=== PATIENT | female | born 1935 | race Caucasian/White ===

== ENCOUNTER → 2017-01-07 | Outpatient (CLI) | payer MEDICARE, BC ==
[~2017-01-07] MED LIST: ACTOS30 MG PO; AMOXICILLIN/CLA1 TA1 PO; BYETTA; CHOLESTYRAMINE1 PO1; DIOVAN160 MG PO; FLONASE NASAL S16 GM NS; FLONASE0.05 MG/AC NS; FOLIC ACID1 MG PO; GLUCOPHAGE XR500 M1 PO; HCTZ; HYDROCHLOR50 MG PO; LIPITOR40 MG PO; METFORMIN ER500 MG PO; NEURONTIN300 MG/CAP PO; NIFEDIPINE ER60 MG PO; PROCARDIA XL 6060 MG PO; ZETIA 10MG TAB10 MG PO; ZETIA10 MG PO
== END ==
LOC: COL.CARD 14:11
DX: R00.2 Palpitations (principal); I49.3 Ventricular premature depolarization

== ENCOUNTER → 2017-07-21 | Outpatient (CLI) | payer MEDICARE, BC | LOC: MC.RAD 08:20 | DX: Z12.31 Encounter for screening mammogram for malignant neoplasm of breast (principal) ==

== ENCOUNTER 2018-03-02 10:45 | Outpatient (RCR) | payer MEDICARE, BC | END 2018-03-05 07:18 | disposition home or self-care (01) | LOC: WSPT 10:45 | DX: M25.551 Pain in right hip (principal) | CPT/HCPCS: G8978-GP; G8979-GP; G8980-GP ==

== ENCOUNTER → 2018-09-17 | Outpatient (CLI) | payer MEDICARE, BC | LOC: MC.RAD 08-25 14:40 | DX: Z12.31 Encounter for screening mammogram for malignant neoplasm of breast (principal) ==

== ENCOUNTER → 2019-09-20 | Outpatient (CLI) | payer MEDICARE, BC | LOC: MC.RAD 15:34 | DX: Z12.31 Encounter for screening mammogram for malignant neoplasm of breast (principal); N64.89 Other specified disorders of breast ==

== ENCOUNTER → 2019-09-23 | Outpatient (CLI) | payer MEDICARE, BC | LOC: MC.RAD 09:25 | DX: N63.20 Unspecified lump in the left breast, unspecified quadrant (principal); N64.89 Other specified disorders of breast | CPT/HCPCS: G0279 ==

== ENCOUNTER → 2019-09-27 | Outpatient (CLI) | payer MEDICARE, BC ==
[~2019-09-27] MED LIST changes: +B-121000 MCG PO; +CALTRATE-600 W600 MG PO; +COZAAR100 MG PO; +DITROPAN 5MG TAB5 MG PO; +FOLIC ACID 11 MG/TA1 PO; +IMODIUM A-D2 MG PO; +LEVEMIR FLEX100 U/ML SQ; +NOVOLOG 100U100 U/M1 SQ; +PRIL40 PO; +TOPROL XL 25MG25 MG PO; +TRICOR145 MG PO; +TYLENOL 500MG500 MG PO; +ULTRAM 50MG TAB50 MG PO
== END ==
LOC: MC.RAD 07:37
DX: Z12.31 Encounter for screening mammogram for malignant neoplasm of breast (principal); N63.21 Unspecified lump in the left breast, upper outer quadrant

== ENCOUNTER 2019-10-14 06:19 | Day surgery (SDC) | payer MEDICARE, BC ==
[~2019-10-14] VITALS: Ht 152.4 cm; Wt 70.9 kg
[~2019-10-14 06:19] MED LIST changes: -B-121000 MCG PO; -CALTRATE-600 W600 MG PO; -COZAAR100 MG PO; -DITROPAN 5MG TAB5 MG PO; -FOLIC ACID 11 MG/TA1 PO; -IMODIUM A-D2 MG PO; -LEVEMIR FLEX100 U/ML SQ; -NOVOLOG 100U100 U/M1 SQ; -PRIL40 PO; -TOPROL XL 25MG25 MG PO; -TRICOR145 MG PO; -TYLENOL 500MG500 MG PO; -ULTRAM 50MG TAB50 MG PO
--- NOTE | 2019-10-14 08:22 | NUR ---
DR DHILLON INTO TALK WITH PATIENT AND DISCUSS LAB RESULTS.
--- NOTE | 2019-10-14 08:25 | NUR ---
SURGERY CANCELLED OFFICE WILL CALL PATIENT
--- NOTE | 2019-10-14 08:33 | NUR ---
DISCHARGED PER OWN WILL STEADY GAIT. DISCHARGED WITH FRIENDS KISHORE AND DIONNA.
[2019-10-14 08:40] VITALS: BP 157/54; PULSE 84; TEMP 97.8
[2019-10-14] MEDS ORDERED: NOVOLOG 100U100 U/M1 SQ (09:01)
[2019-10-14] MEDS ORDERED: LEVEMIR FLEX100 U/ML SQ (09:01)
[2019-10-14] MEDS ORDERED: TOPROL XL 25MG25 MG PO (09:04)
[2019-10-14] MEDS ORDERED: COZAAR100 MG PO (09:05)
[2019-10-14] MEDS ORDERED: FOLIC ACID 11 MG/TA1 PO (09:05)
[2019-10-14] MEDS ORDERED: B-121000 MCG PO (09:06)
[2019-10-14] MEDS ORDERED: CALTRATE-600 W600 MG PO (09:08)
[2019-10-14] MEDS ORDERED: ZETIA 10MG TAB10 MG PO (09:08)
[2019-10-14] MEDS ORDERED: DITROPAN 5MG TAB5 MG PO (09:09)
[2019-10-14] MEDS ORDERED: TRICOR145 MG PO (09:09)
[2019-10-14] MEDS ORDERED: FLONASE NASAL S16 GM NS (09:11)
[2019-10-14] MEDS ORDERED: IMODIUM A-D2 MG PO (09:13)
[2019-10-14] MEDS ORDERED: PRIL40 PO (09:14)
[2019-10-14] MEDS ORDERED: TYLENOL 500MG500 MG PO (09:14)
--- NOTE | 2019-10-14 09:16 | NUR ---
TO RM AT 0815- CALL LIGHT IN REACH WILL BE COMING AT A LATER TIME.
--- NOTE | 2019-10-14 11:23 | NUR ---
RETURNED FROM RADIOLOGY. AMBULATED TO BATHROOM WITH CANE. BACK IN BED AND IV FLUIDS RESTARTED
--- NOTE | 2019-10-14 11:37 | NUR ---
Initial visit; Patient requested prayer prior to procedure. Computer Systems Security Administrator offered both encouragement and prayer. Patient and her thanked Computer Systems Security Administrator for spiritual care.
[2019-10-14] MEDS ORDERED: ULTRAM 50MG TAB50 MG PO (14:29)
[2019-10-14 15:00] VITALS: BP 115/43; PULSE 78; TEMP 98.2
--- NOTE | 2019-10-14 15:00 | NUR ---
The patient arrived back to [facility] from the recovery room at this time. The patient appears alert and oriented and reports minimal pain at this time. Post operative vital signs were started at this time. The patient's was brought back to be at her bedside. The patient has some ice chips and appears to be tolerating them well. Call light is within reach. Will continue to monitor the patient.
[2019-10-14 15:15] VITALS: BP 110/58; PULSE 77
--- NOTE | 2019-10-14 15:15 | NUR ---
The patient agrees to try some wheat toast, chocolate pudding and coffee at this time. The patient's vital signs appear stable. remains at her bedside. Will continue to monitor the patient.
[2019-10-14 15:30] VITALS: BP 123/51; PULSE 81
--- NOTE | 2019-10-14 15:30 | NUR ---
The patient has finished most of her food and drink and appears to have tolerated it well. Vital signs obtained. The patient was weaned off her oxygen at this time. Call light is within reach. Will continue to monitor the patient.
[2019-10-14 15:45] VITALS: BP 115/57; PULSE 83
--- NOTE | 2019-10-14 15:45 | NUR ---
The patient ambulated to the bathroom with the stand by assistance of one nurse and her cane. She appeared to tolerate the activity well and voided without difficulty. The patient's IV to her right hand was removed and a pressure dressing was applied to the site. The nurse instructed the patient to get dressed and notify the staff when she is ready to be escorted out.
[2019-10-14 15:50] VITALS: BP 99/45; PULSE 79; TEMP 97.5
--- NOTE | 2019-10-14 16:00 | NUR ---
Discharge instructions were reviewed with the patient and her at this time. They both verbalized understanding and have no questions for the nurse at this time. The patient's IV to her right hand was removed and a pressure dressing was applied to the site.
--- NOTE | 2019-10-14 16:15 | NUR ---
The patient was escorted out via wheelchair to a private vehicle by HONG Shirley. The patient's belongings and discharge paperwork were sent with her. The patient's is present to drive her home.
== END 2019-10-14 16:15 | disposition home or self-care (01) ==
LOC: SDCO 06:19
DX: C50.412 Malignant neoplasm of upper-outer quadrant of left female breast (principal); Z17.0 Estrogen receptor positive status [ER+]; I10 Essential (primary) hypertension; E11.9 Type 2 diabetes mellitus without complications; Z79.4 Long term (current) use of insulin; Z79.899 Other long term (current) drug therapy; E78.00 Pure hypercholesterolemia, unspecified; K21.9 Gastro-esophageal reflux disease without esophagitis; Z88.8 Allergy status to other drugs, medicaments and biological substances
CPT/HCPCS: A9541; J1885; J2250; J2405; J2704; J2795; J3010; J7030

== ENCOUNTER → 2021-09-19 | Outpatient (CLI) | payer MEDICARE, BC ==
[~2021-09-19] MED LIST changes: +B-121000 MCG PO; +CALTRATE-600 W600 MG PO; +COZAAR100 MG PO; +DITROPAN 5MG TAB5 MG PO; +FOLIC ACID 11 MG/TA1 PO; +IMODIUM A-D2 MG PO; +LEVEMIR FLEX100 U/ML SQ; +NOVOLOG 100U100 U/M1 SQ; +PRIL40 PO; +TOPROL XL 25MG25 MG PO; +TRICOR145 MG PO; +TYLENOL 500MG500 MG PO; +ULTRAM 50MG TAB50 MG PO
== END ==
LOC: MC.RAD 08:59
DX: Z12.31 Encounter for screening mammogram for malignant neoplasm of breast (principal); Z98.890 Other specified postprocedural states; Z92.3 Personal history of irradiation; Z85.3 Personal history of malignant neoplasm of breast

== ENCOUNTER 2022-12-29 23:08 | Inpatient (IN) | payer MEDICARE, BC ==
[~2022-12-29] VITALS: Wt 70.5 kg
[~2022-12-29 23:08] MED LIST changes: +MILK OF MA400 MG/52 PO; +MIRALAX238G PO; +STOOL SOFTENER100 M2 PO
[2022-12-29 23:40] LABS: BASO % 0.2 % (0.0-2.0); EOS # 0.1 K/mm3 (0.0-0.7); EOS % 0.7 % (0.0-4.0); GRAN # 10.1 K/mm3 (1.4-6.5); GRAN % 71.7 % (42.2-75.2); HEMATOCRIT 42.2 % (37.0-47.0); HEMOGLOBIN 14.1 g/dl (12.5-16.0); LYMPH # 3.1 K/mm3 (1.2-3.4); LYMPH % 22.1 % (20.0-51.0); MEAN CELL VOLUME 93 fl (80.0-100.0); MEAN CORPUSCULAR HEMOGLOBIN 31 pg (27-31); MEAN CORPUSCULAR HGB CONC 33 g/dl (33.0-37.0); MEAN PLATELET VOLUME 9.8 fl (7.4-10.4); MONO # 0.7 K/mm3 (0.1-0.6); MONO % 4.9 % (1.7-9.3); PLATELET COUNT 290 K/mm3 (130-400); RED BLOOD COUNT 4.54 M/mm3 (4.10-5.30); REDCELL DISTRIBUTION WIDTH-CV 13.2 % (11.5-14.5)
[2022-12-30 00:04] LABS: ALBUMIN 3.6 gm/dL (3.4-4.8); BILIRUBIN,TOTAL 0.3 mg/dL (0.2-1.2); C-REACTIVE PROTEIN 1.01 mg/dL (0.00-0.50); CALCIUM 9.5 mg/dL (8.4-10.2); CREATININE, serum 0.99 mg/dL (0.57-1.11); POTASSIUM 3.8 mmol/L (3.5-4.5); TOTAL PROTEIN 8.1 gm/dL (6.2-8.1)
[2022-12-30 09:21] VITALS: BP 158/66; PULSE 111; TEMP 97.9
[2022-12-30 12:58] VITALS: BP 189/70; PULSE 111; TEMP 97.9
--- NOTE | 2022-12-30 16:45 | NUR ---
PT WAS ADMITTED FROM ED FOR POSSIBLE PANCREATITIS. PT IS A&OX3; AT BEDSIDE. ULTRASOUND DONE TO CHECK FOR GALLSTONES-WAITING FOR RESULTS
[2022-12-30 16:55] VITALS: BP 183/62; PULSE 100; TEMP 98.1
--- NOTE | 2022-12-30 17:25 | NUR ---
PT BP ELEVATED X2- DR. QUEVEDO CALLED AND CHANGES MADE TO METOPROLOL W. ONE TIME DOSE NOW
[2022-12-30 20:03] VITALS: BP 166/61; PULSE 98; TEMP 98.1
[2022-12-30 23:16] VITALS: BP 151/53; PULSE 96; TEMP 100.6
[2022-12-31 05:00] VITALS: BP 153/54; PULSE 89; TEMP 98.1
--- NOTE | 2022-12-31 06:29 | NUR ---
pt placed on 2L O2 per NC after midnight VS d/t low sat on RA, new orders rec'd for po hydralazine for sbp > 150, will give dose now, sbp 153. requested morphine x1 this shift for abd pain. IVF infusing @ 75cc/hr per piv.
[2022-12-31 06:40] LABS: BASO # 0.1 K/mm3 (0.0-0.2); BASO % 0.3 % (0.0-2.0); EOS # 0.1 K/mm3 (0.0-0.7); EOS % 0.3 % (0.0-4.0); GRAN % 75.4 % (42.2-75.2); LYMPH # 3.3 K/mm3 (1.2-3.4); LYMPH % 16.6 % (20.0-51.0); MEAN CELL VOLUME 92 fl (80.0-100.0); MEAN CORPUSCULAR HGB CONC 34 g/dl (33.0-37.0); MEAN PLATELET VOLUME 10.3 fl (7.4-10.4); MONO # 1.4 K/mm3 (0.1-0.6); MONO % 6.8 % (1.7-9.3); PLATELET COUNT 243 K/mm3 (130-400); REDCELL DISTRIBUTION WIDTH-CV 13.7 % (11.5-14.5)
[2022-12-31 06:42] LABS: HEMATOCRIT 35.9 % (37.0-47.0); HEMOGLOBIN 12.1 g/dl (12.5-16.0); MEAN CORPUSCULAR HEMOGLOBIN 31 pg (27-31)
[2022-12-31 07:00] LABS: CALCIUM 8.6 mg/dL (8.4-10.2); CREATININE, serum 0.79 mg/dL (0.57-1.11); POTASSIUM 3.2 mmol/L (3.5-4.5)
[2022-12-31 07:10] VITALS: BP 166/58; PULSE 96; TEMP 98.2
[2022-12-31 08:44] LABS: ALBUMIN 2.7 gm/dL (3.4-4.8); BILIRUBIN,TOTAL 0.6 mg/dL (0.2-1.2); CALCIUM 8.6 mg/dL (8.4-10.2); CREATININE, serum 0.81 mg/dL (0.57-1.11); POTASSIUM 3.3 mmol/L (3.5-4.5); TOTAL PROTEIN 6.7 gm/dL (6.2-8.1)
[2022-12-31 10:58] VITALS: BP 177/55; PULSE 89; TEMP 97.4
[2022-12-31 15:12] VITALS: BP 181/57; PULSE 94; TEMP 97.4
--- NOTE | 2022-12-31 15:44 | NUR ---
Merchandise Execution Leader met with Patient and at bedside to conduct Care Managment Assessment and discuss discharge planning. Patient lives in [place], [place] with her , Pat P:[phone] and is established with PCP Dr. Ferraro. Patient is covered by [facility] as well as [facility] for insurance. Yolanda recieves Rx from [facility] and endorses the use of a walker at home. Patient denies the use of O2 and Home health services prior to admission. Patient reports to have AD with her daughter as her agent. Patient intends to discharge home pending changes in discharge needs. Discharge Plan: Home.
[2022-12-31 19:22] VITALS: BP 160/56; PULSE 93; TEMP 98.7
[2022-12-31 20:26] LABS: COLLECTION METHOD CLEAN CATCH
[2022-12-31 20:31] LABS: URINE APPEARANCE Clear (CLEAR/HAZY); URINE COLOR Yellow (YELLOW)
[2022-12-31 20:33] LABS: PH 6.5 (5.0-8.5); URINE BLOOD Negative (NEGATIVE); URINE GLUCOSE 1+ (NEGATIVE); URINE KETONE Negative (NEGATIVE); URINE NITRATE Negative (NEGATIVE); URINE PROTEIN(semi-quant) 2+ (NEGATIVE); URINE UROBILINOGEN 0.2 E.U/dL (0.2-1.0)
[2022-12-31 20:34] LABS: SQUAMOUS EPITHELIAL None Seen /hpf (0-10); URINE BACTERIA None Seen /hpf (NONE SEEN)
[2023-01-01 00:15] VITALS: BP 144/58; PULSE 87; TEMP 97.9
[2023-01-01 04:57] VITALS: BP 151/60; PULSE 94; TEMP 97.9
--- NOTE | 2023-01-01 05:58 | NUR ---
continues to require 2L O2 per NC, ivf infusing per piv @ 75cc/hr, morphine given x1 for reported pain of 9 on 0-10 scale, able to sleep afterwards, up to bsc with assist of 2. HS BGM 158, pt did not eat lunch or dinner yesterday d/t stomach discomfort, wanted to only take 25 units of HS levemir insulin. CT abd ordered for this am.
[2023-01-01 07:17] LABS: BASO # 0.1 K/mm3 (0.0-0.2); BASO % 0.3 % (0.0-2.0); EOS # 0.1 K/mm3 (0.0-0.7); EOS % 0.7 % (0.0-4.0); GRAN # 15.3 K/mm3 (1.4-6.5); GRAN % 78.6 % (42.2-75.2); HEMOGLOBIN 12.2 g/dl (12.5-16.0); LYMPH # 2.6 K/mm3 (1.2-3.4); LYMPH % 13.2 % (20.0-51.0); MEAN CELL VOLUME 92 fl (80.0-100.0); MEAN CORPUSCULAR HEMOGLOBIN 31 pg (27-31); MEAN CORPUSCULAR HGB CONC 34 g/dl (33.0-37.0); MEAN PLATELET VOLUME 10.2 fl (7.4-10.4); MONO # 1.2 K/mm3 (0.1-0.6); MONO % 6.2 % (1.7-9.3); PLATELET COUNT 249 K/mm3 (130-400); RED BLOOD COUNT 3.94 M/mm3 (4.10-5.30); REDCELL DISTRIBUTION WIDTH-CV 13.3 % (11.5-14.5)
[2023-01-01 07:18] LABS: HEMATOCRIT 36.1 % (37.0-47.0)
[2023-01-01 07:37] LABS: CALCIUM 8.6 mg/dL (8.4-10.2); CREATININE, serum 0.75 mg/dL (0.57-1.11); POTASSIUM 3.2 mmol/L (3.5-4.5)
[2023-01-01 08:02] VITALS: BP 152/58; PULSE 96; TEMP 97.4
[2023-01-01 11:30] VITALS: BP 158/62; PULSE 89; TEMP 97.6
--- NOTE | 2023-01-01 13:20 | NUR ---
PT HAD REPEAT CT THIS MORNING- WAITING FOR RESULTS; NO OTHER CHANGES TODAY
[2023-01-01 15:58] VITALS: BP 159/53; PULSE 84; TEMP 97.6
[2023-01-01 19:36] VITALS: BP 133/41; PULSE 83; TEMP 98
--- NOTE | 2023-01-01 20:00 | NUR ---
PATIENT IS RESTING IN BED.PATIENT DENIES PAIN AND SOB.PATIENT IS A ONE ASSIST TO THE BEDSIDE COMMODE.PATIENT TAKES PILLS WHOLE WITH NO TROUBLE.SAFETY MEASURES IN PLACE.NO OTHER NEEDS AT THIS TIME.
[2023-01-02 00:01] VITALS: BP 167/54; PULSE 86; TEMP 97.6
[2023-01-02 03:36] VITALS: BP 152/60; PULSE 79; TEMP 98.2
--- NOTE | 2023-01-02 06:21 | NUR ---
PATIENT HAD A CALM NIGHT.SAFETY MEASURES IN PLACE.NO OTHER NEEDS AT THIS TIME.
[2023-01-02 06:42] LABS: BASO % 0.3 % (0.0-2.0); EOS # 0.3 K/mm3 (0.0-0.7); EOS % 1.8 % (0.0-4.0); GRAN # 11.6 K/mm3 (1.4-6.5); GRAN % 78.3 % (42.2-75.2); HEMOGLOBIN 11.4 g/dl (12.5-16.0); LYMPH % 13.2 % (20.0-51.0); MEAN CELL VOLUME 92 fl (80.0-100.0); MEAN CORPUSCULAR HEMOGLOBIN 31 pg (27-31); MEAN CORPUSCULAR HGB CONC 33 g/dl (33.0-37.0); MEAN PLATELET VOLUME 10.6 fl (7.4-10.4); MONO # 0.9 K/mm3 (0.1-0.6); MONO % 5.9 % (1.7-9.3); PLATELET COUNT 243 K/mm3 (130-400); RED BLOOD COUNT 3.74 M/mm3 (4.10-5.30); REDCELL DISTRIBUTION WIDTH-CV 13.2 % (11.5-14.5)
[2023-01-02 06:45] LABS: HEMATOCRIT 34.3 % (37.0-47.0)
[2023-01-02 06:58] LABS: CALCIUM 8.7 mg/dL (8.4-10.2); CREATININE, serum 0.7 mg/dL (0.57-1.11)
--- NOTE | 2023-01-02 07:00 | NUR ---
PATIENT ASLEEP, RESTING IN BED. PATIENTS BED ALARM ON. IVF INFUSING. CALL LIGHT WTIHIN REACH.
[2023-01-02 07:02] VITALS: BP 154/50; PULSE 88; TEMP 98.2
[2023-01-02 07:16] LABS: POTASSIUM 2.7 mmol/L (3.5-4.5)
[2023-01-02 08:06] LABS: MAGNESIUM 1.8 mg/dL (1.6-2.6); PHOSPHOROUS 1.7 mg/dL (2.3-4.7)
[2023-01-02 11:24] VITALS: BP 130/46; PULSE 83; TEMP 98.2
[2023-01-02] MEDS ORDERED: ARIMIDEX1 MG PO (11:49)
--- NOTE | 2023-01-02 13:55 | NUR ---
PATIENT GIVEN DISCHARGE INSTRUCTIONS AND EDUCATION. PATIENT AWARE SHE NEEDS TO CALL DR PETTY OFFICE FOR FOLLOW UP APT, SHOWN ON DISCHARGE PAPER WORK. PATIENT VERBALIZED UNDERSTANDING OF THE ALL THE ABOVE. PATIENTS IV REMOVED.
--- NOTE | 2023-01-02 14:05 | NUR ---
PATIENT DRESSED BY A PCT AND THIS RN, PATIENT TAKEN VIA WHEELCHAIR BY PCT TO PATIENT ENTRANCE WHERE HER PICKED HER UP. PATIETN DISCHARGE IN STABLE CONDITION.
== END 2023-01-02 14:05 | disposition home or self-care (01) | DRG 439 ==
LOC: COL.ER 23:08 → MEDICAL 12-30 02:24
PROVIDERS: Emergency Medicine; Internal Medicine; Physician Assistant; Surgery; ADMIT Internal Medicine
DX: K85.80 Other acute pancreatitis without necrosis or infection (principal); K83.09 Other cholangitis; K86.2 Cyst of pancreas; E11.9 Type 2 diabetes mellitus without complications; Z96.611 Presence of right artificial shoulder joint; E87.6 Hypokalemia; E83.39 Other disorders of phosphorus metabolism; I10 Essential (primary) hypertension; K62.3 Rectal prolapse; K59.09 Other constipation; Z90.49 Acquired absence of other specified parts of digestive tract; Z90.710 Acquired absence of both cervix and uterus; Z90.89 Acquired absence of other organs; Z88.6 Allergy status to analgesic agent; Z88.8 Allergy status to other drugs, medicaments and biological substances; Z91.048 Other nonmedicinal substance allergy status; Z79.4 Long term (current) use of insulin; Z23 Encounter for immunization
CPT/HCPCS: J0360; J1815; J2270; J2405; J2543; J2550; J7030; Q9967

== ENCOUNTER → 2023-01-19 | Outpatient (CLI) | payer MEDICARE, BC ==
[~2023-01-19] MED LIST changes: +ARIMIDEX1 MG PO
== END ==
LOC: COL.RAD 08:22
DX: K86.2 Cyst of pancreas (principal); K86.3 Pseudocyst of pancreas
CPT/HCPCS: A9575

== ENCOUNTER 2024-01-12 16:09 | Inpatient (IN) | payer MEDICARE, BC ==
[~2024-01-12] VITALS: Ht 154.9 cm; Wt 78.1 kg
[2024-01-12 18:35] LABS: ALBUMIN 2.5 g/dL (3.4-4.8); BILIRUBIN,TOTAL 0.4 mg/dL (0.2-1.2); CALCIUM 9.7 mg/dL (8.4-10.2); CREATININE, serum 1.15 mg/dL (0.57-1.11); POTASSIUM 4.5 mEq/L (3.5-4.5); TOTAL PROTEIN 7.6 g/dl (6.2-8.1)
[2024-01-12 18:41] LABS: TROPONIN-I 0.03 ng/mL (0.00-0.033)
[2024-01-12] MEDS ORDERED: cefTRIAXone 1 G in Water For Injection,Sterile 10 ML IV ONE (18:45)
[2024-01-12] MEDS ORDERED: Azithromycin 500 MG in NS 250 ML IV ONE (18:45)
[2024-01-12 19:05] LABS: BASO # 0.1 K/mm3 (0.0-0.2); BASO % 0.7 % (0.0-2.0); EOS % 0.3 % (0.0-4.0); GRAN # 9.2 K/mm3 (1.4-6.5); HEMATOCRIT 37.7 % (37.0-47.0); HEMOGLOBIN 12.3 g/dl (12.5-16.0); LYMPH # 1.4 K/mm3 (1.2-3.4); LYMPH % 12.1 % (20.0-51.0); MEAN CELL VOLUME 93 fl (80.0-100.0); MEAN CORPUSCULAR HEMOGLOBIN 30 pg (27-31); MEAN CORPUSCULAR HGB CONC 33 g/dl (33.0-37.0); MEAN PLATELET VOLUME 10.2 fl (7.4-10.4); MONO # 1.1 K/mm3 (0.1-0.6); MONO % 9.1 % (1.7-9.3); PLATELET COUNT 280 K/mm3 (130-400); RED BLOOD COUNT 4.06 M/mm3 (4.10-5.30); REDCELL DISTRIBUTION WIDTH-CV 13.6 % (11.5-14.5)
[2024-01-12] MEDS ORDERED: Glucagon 1 MG VIAL IM PRN (21:00)
[2024-01-12] MEDS ORDERED: Dextrose (Glucose) 15 GM (4 x 3.75 GM) Chewable TABLET PACK PO PRN (21:00)
[2024-01-12] MEDS ORDERED: Dextrose 50% Water 25 GM/50 ML SYRINGE IV PRN (21:00)
[2024-01-12] MEDS ORDERED: NS 1,000 ML IV SCH (21:15)
--- NOTE | 2024-01-12 21:37 | NUR ---
PRIMARY NURSE CALLED ER TO GET REPORT. CLAUDIO IN GIVING MEDICATIONS AND STATED SHE WOULD CALL BACK.
--- NOTE | 2024-01-12 21:47 | NUR ---
CLAUDIO CALLED PRIMARY NURSE BACK AND RECIEVED REPORT ON PATIENT.
--- NOTE | 2024-01-12 22:01 | NUR ---
CLAUDIO CALLED PRIMARY NURSE AND INFORMED HER THAT PATIENT WAS ON THEIR WAY UP TO ROOM.
--- NOTE | 2024-01-12 22:13 | NUR ---
PATIENT BLOOD SUGAR 57. D50 12.5 GRAMS GIVEN PER HYPOGLYCEMIC PROTOCOL. PATIENT ALERT AND ORIENTED WITH NO ACUTE DISTRSS NOTED.
[2024-01-12] MEDS ORDERED: *Potassium Replacement Protocol MC SCH (22:15)
--- NOTE | 2024-01-12 22:15 | NUR ---
FEMALE PATIENT ARRIVED TO ROOM #310 VIA STRETCHER FROM ER. PATIENT TRANSFERED TO BED. PATIENT TOLERATED WEEL. PATIENT ALERT AND ORIENTED X4. TELEMETRY INTACT. SKIN WARM, DRY, AND INTACT. YEAST NOTED TO GROIN FOLDS WITH SLIGHT REDNESS. INT TO RIGHT WRIST WITH BLOOD PRESENT. UNABLE TO FLUSH. NEW IV SITE OBTAINED. PATIENT VERBALIZED UNDERSTANDING OF CALL LIGHT AND BED CONTROLS. PATIENT GIVEN PITCHER OF WATER WITH ICE. PATIENT DENIES ANY OTHER NEEDS. BED IN LOW POSITION WITH WHEELS LOCKED WITH RAILS UP X3 AND CALL LIGHT WITHIN REACH. BED ALARM ON.
--- NOTE | 2024-01-12 22:45 | NUR ---
PATIENT RESTING IN BED WITH TV OFF WITH NO FAMILY PRESENT WITH NO ACUTE DISTRESS NOTED. PATIENT ON 2 LITERS OF OXYGEN VIA NC. TELEMETRY INTACT. MEDICATION ADMINISTRATION COMPLETED AT THIS TIME. PATIENT TOLERATED WELL. ALL NEEDS MET. BED IN LOW POSITION WITH WHEELS LOCKED WITH RAILS UP X3 AND CALL LIGHT WITHIN REACH. BED ALARM ON.
[2024-01-12] MEDS ORDERED: Albuterol/Ipratropium 3 MG-0.5 MG/3 ML Neb Soln IH SCH (23:00)
[2024-01-12 23:44] VITALS: BP 134/70; PULSE 82; TEMP 98.1
[2024-01-13] VITALS (13 sets, daily range): BP systolic 109–168; BP diastolic 46–76; PULSE 76–102; TEMP 97.5–98.2
[2024-01-13] MEDS ORDERED: STOOL SOFTENER100 M2 PO (00:34)
[2024-01-13] MEDS ORDERED: NOVOLOG 100U100 U/M1 SQ (00:47)
[2024-01-13] MEDS ORDERED: CEPHALEXIN500 M1 PO (00:53)
--- NOTE | 2024-01-13 00:59 | NUR ---
PATIENT BLOOD SUGAR RECHECKED BY PRIMARY NURSE WITH A RESULT OF 66. D50 12.5 MG IV GIVEN PER HYPOGLYCEMIC PROTOCOL. PATIENT CONTINUES TO BE ALERT AND ORIENTED WITH NO ACUTE DISTRESS NOTED.
[2024-01-13 06:24] LABS: BASO # 0.1 K/mm3 (0.0-0.2); BASO % 0.5 % (0.0-2.0); EOS % 0.3 % (0.0-4.0); GRAN % 72.1 % (42.2-75.2); LYMPH # 1.6 K/mm3 (1.2-3.4); MEAN CELL VOLUME 92 fl (80.0-100.0); MEAN CORPUSCULAR HGB CONC 33 g/dl (33.0-37.0); MEAN PLATELET VOLUME 10.3 fl (7.4-10.4); MONO % 10.4 % (1.7-9.3); PLATELET COUNT 248 K/mm3 (130-400); RED BLOOD COUNT 3.33 M/mm3 (4.10-5.30); REDCELL DISTRIBUTION WIDTH-CV 13.7 % (11.5-14.5)
[2024-01-13 06:25] LABS: HEMATOCRIT 30.7 % (37.0-47.0); MEAN CORPUSCULAR HEMOGLOBIN 30 pg (27-31)
[2024-01-13 06:37] LABS: CALCIUM 8.6 mg/dL (8.4-10.2); CREATININE, serum 0.97 mg/dL (0.57-1.11); MAGNESIUM 2.1 mg/dL (1.6-2.6); PHOSPHOROUS 2.5 mg/dL (2.3-4.7)
[2024-01-13] MEDS ORDERED: Doxycycline Hyclate 100 MG in NS 150 ML IV SCH (08:00)
--- NOTE | 2024-01-13 08:30 | NUR ---
patient assessment completed. patient requested to have all four rails up. Patient was informed that four rails up is consider a restrain and patient would have limited access getting out of bed and it is also against patient care treatment. Patient agreed to having one side rail up. call light within reach. bed at lowest position.
[2024-01-13] MEDS ORDERED: Benzonatate 100 MG CAP PO PRN (08:45)
[2024-01-13] MEDS ORDERED: Acetaminophen 500 MG TAB PO PRN (08:45)
--- NOTE | 2024-01-13 10:25 | NUR ---
Initial visit; Patient thanked Link Cutter for looking in on her and offering to keep her in her prayers. Patient's was also present and very nice and offering support.
--- NOTE | 2024-01-13 10:43 | NUR ---
church worker met with patient and , Sunny, P# [phone], to discuss discharge planning. PCP is Dr. Ferraro, pharmacy is [facility]. No issues with affording medication. Insurance is Medicare A and B, BCBS and has A[employer] for pharmacy needs. DPOA-HC is Lina and Julienne (daughter) Home P# [phone] and cell P# is [phone]. Pat reports daughter lives with them in their home. The home has stairs but they have a stair lift for patient to be able to go up and down on her own. DME is walker, cane and patient reports she just obtained a wheelchair yesterday. Patient reports normally she is able to be indpendent with ADLS, only assistance at this time is her turning the water on in the shower for her. Patient is currently on oxygen but does not have this at baseline. Patient's is able to transport to and from appointments. Patient would like to return home at time of discharge but is open to recommendations after PT/OT evaluate her. SW will continue to monitor. Discharge plan: Home
[2024-01-13] MEDS ORDERED: Insulin Lispro (HumaLOG) SQ SCH ×2 (12:00)
--- NOTE | 2024-01-13 13:15 | NUR ---
pt c/o SOA with talking, improves at rest. o2 level was 93% at 1 L per NC after weaning from 6 L. Encouraged pt to take deep breaths. pt is coughing and clearing airway with pale yellow sputum. no acute distress. is at bedside, bed lowest positon with 4 rails up. call light within reach.
[2024-01-13] MEDS ORDERED: Albuterol/Ipratropium 3 MG-0.5 MG/3 ML Neb Soln IH SCH (14:00)
--- NOTE | 2024-01-13 14:15 | NUR ---
patient was taken off oxygen per respiratory, shortly after patient started to experience difficulty breathing therefore patient oxygen was placed back on at 1L/NC and patient began to breath easier. call light within reach. bed at lowest position. bed alarm on.
--- NOTE | 2024-01-13 15:58 | NUR ---
tanyard worker met with pt and provided Medicare.gov list of HH vs SNF facilities. Pt had many questions regarding each and SW answered these. She was familiar with many different agencies. She reports wanting to talk to her tomorrow before making a decision. Pt stated if she were to go home, her could be there 27/04. Discharge Plan: SNF vs HH
[2024-01-13] MEDS ORDERED: cefTRIAXone 1 G in Water For Injection,Sterile 10 ML IV SCH (19:00)
--- NOTE | 2024-01-13 20:30 | NUR ---
UPON SHIFT ASSESSMENT, SHANELLE WAS AWAKE IN BED AND AXO X4. WAS BEDSIDE. INCREASE WOB WAS EVIDENT AND LUNG SOUNDS AUSCULTATED RUB WITH EXP WHEEZING IN LT LOWER LOBES, EXP WHEEZING IN BOTH UPPER LOBES. VS ARE WNL LIMITS, O2 ON 0.5L NC 93%. PATEINT C/O JOINER 04/13-ADMINISTERED PRN TYLENOL. PATIENT STATED NO OTHER NEEDS AT THIS TIME. CALL LIGHT WITHIN REACH.
[2024-01-14] VITALS (13 sets, daily range): BP systolic 103–179; BP diastolic 58–78; PULSE 83–94; TEMP 97.5–99
--- NOTE | 2024-01-14 01:11 | NUR ---
ROUNDED ON PATIENT, O2 NC DISLODGED FROM NARES. O2 PULSE OX 92%-WNL.
--- NOTE | 2024-01-14 04:30 | NUR ---
CALL PLACED TO RT, PATIENT CONTINUES TO HAVE EXP WHEEZING BILATERALLY. RT STATES THAT PATIENT JUST GOT SVN TREATMENT, BUT SHE WILL COME AND REASSESS.
[2024-01-14 07:50] LABS: BASO # 0.1 K/mm3 (0.0-0.2); BASO % 0.4 % (0.0-2.0); EOS # 0.2 K/mm3 (0.0-0.7); EOS % 1.4 % (0.0-4.0); GRAN # 7.9 K/mm3 (1.4-6.5); GRAN % 66.1 % (42.2-75.2); HEMOGLOBIN 11.1 g/dl (12.5-16.0); LYMPH # 2.7 K/mm3 (1.2-3.4); LYMPH % 22.5 % (20.0-51.0); MEAN CELL VOLUME 94 fl (80.0-100.0); MEAN CORPUSCULAR HEMOGLOBIN 30 pg (27-31); MEAN CORPUSCULAR HGB CONC 32 g/dl (33.0-37.0); MEAN PLATELET VOLUME 10.1 fl (7.4-10.4); MONO % 8.2 % (1.7-9.3); PLATELET COUNT 316 K/mm3 (130-400); RED BLOOD COUNT 3.68 M/mm3 (4.10-5.30); REDCELL DISTRIBUTION WIDTH-CV 14.1 % (11.5-14.5)
[2024-01-14 07:51] LABS: HEMATOCRIT 34.6 % (37.0-47.0)
[2024-01-14 08:13] LABS: ALBUMIN 2.2 g/dL (3.4-4.8); CALCIUM 8.9 mg/dL (8.4-10.2); CREATININE, serum 0.79 mg/dL (0.57-1.11); MAGNESIUM 2.1 mg/dL (1.6-2.6); PHOSPHOROUS 2.2 mg/dL (2.3-4.7)
[2024-01-14] MEDS ORDERED: Cefepime 1 G in Water For Injection,Sterile 10 ML IV SCH (09:00)
[2024-01-14] MEDS ORDERED: Anastrozole 1 MG TAB PO SCH (09:00)
[2024-01-14] MEDS ORDERED: Folic Acid 1 MG TAB PO SCH (09:00)
[2024-01-14] MEDS ORDERED: NIFEdipine XL 60 MG TAB PO SCH (09:00)
[2024-01-14] MEDS ORDERED: Losartan 50 MG TAB PO SCH (09:00)
--- NOTE | 2024-01-14 11:26 | NUR ---
PATIENT BLOOD PRESSURE ELEVATED. HOSPITALIST WAS NOTIFIED.
[2024-01-14] MEDS ORDERED: amLODIPine 5 MG TAB PO ONE (11:30)
[2024-01-14] MEDS ORDERED: hydrALAZINE 10 MG TAB PO PRN (11:30)
[2024-01-14] MEDS ORDERED: Iohexol 300 - 100 ML VIAL IV ONE (11:41)
[2024-01-14] MEDS ORDERED: NS 100 ML IV SCH (11:42)
--- NOTE | 2024-01-14 13:10 | NUR ---
spray worker called patient to follpow up on HH vs SNF choice. She reports she spoke with her and decided on [facility]. SW faxed referral to [facility]. Discharge Plan: home with
[2024-01-14] MEDS ORDERED: dexAMETHasone 10 MG/ML VIAL IV SCH (16:00)
--- NOTE | 2024-01-14 19:30 | NUR ---
Assessment complete. A&Ox3. Denies pain/nausea. Short of breath at rest. O2@0.5L/NC. Noted to have coarse lung sounds bilat. Right AC INT flushes without difficulty. TELE reporting SR. BPs are normalized. VS stable. Noted to have a rectal prolapse. Plan of care discussed for this shift to include meds/pain control/calling for questions/concerns. Verbalizes understanding. Call light in reach/bed alarm on. Will monitor.
[2024-01-14] MEDS ORDERED: Fluticasone Nasal 50 MCG/Spray 16 GM BOTTLE NS PRN (21:00)
--- NOTE | 2024-01-14 22:00 | NUR ---
This nurse hears patient at nurses station coughing. Discussed keturah parsons and given at this time per dr order. Will monitor.
[2024-01-15] VITALS (11 sets, daily range): BP systolic 111–161; BP diastolic 59–71; PULSE 79–94; TEMP 97.4–98.1
--- NOTE | 2024-01-15 00:10 | NUR ---
Resting eyes closed. NO s/s of pain or discomfort noted. Will monitor.
--- NOTE | 2024-01-15 05:31 | NUR ---
Patient rested off and on this shift. Received one dose of tessalon perles with good results. VS remained stable. Up to bedside commode several times to void-clear yellow urine. INT to right AC flushes well with no s/s of infiltration noted. TELE reporting SR. Edmondson on O2@0.5L/NC. BPs WNL. Currently resting in bed with eyes closed. No s/s of pain or discomfort noted. Will monitor.
--- NOTE | 2024-01-15 06:45 | NUR ---
PATIENT AWAKE AND ALERT, SITTING ON BEDSIDE COMMODE. PCT AT BEDSIDE. CALL LIGHT WITHIN REACH.
--- NOTE | 2024-01-15 07:04 | NUR ---
Spoke with Dr. Brown about pulmonology consult. Will see patient today.
--- NOTE | 2024-01-15 10:30 | NUR ---
LAB CALLED THEY SEE NO LAB ORDERS FOR THIS PATINET. PER PATIETNS CHART IT SHOWS CBC AND RFP ORDERED FOR DAILY AT 0800 UP UNTIL TOMORROW. THIS RN WILL PLCAE ONE TIME ORDER FOR LABS SO THEY CAN BE DRAWN. CERTIFIED MIDWIFE INFORMED
--- NOTE | 2024-01-15 10:49 | NUR ---
THIS RN CALLED TO ASK LAB WHY PATIENT HAS 0500AM CBC AND REBAL FUNCTION PANEL ORDERED FOR TODAY HOWEVER NO LABS FOR TODAY SHOW. LAB SEDNING A PHLEB NOW TO DRAW PATIENTS BLOOD WORK.
--- NOTE | 2024-01-15 11:10 | NUR ---
size worker spoke with [facility] who requested the referral to be resent; but they could accept pt. MICHELLE attended clinical rounding and was informed pt can likely discharge home tomorrow. MICHELLE Student Marcella completed IM from Medicare. She provided copy and placed original in the chart. Discharge Plan: Home with [facility]
[2024-01-15 11:57] LABS: HEMOGLOBIN 11.4 g/dl (12.5-16.0); MEAN CELL VOLUME 90 fl (80.0-100.0); MEAN CORPUSCULAR HEMOGLOBIN 31 pg (27-31); MEAN CORPUSCULAR HGB CONC 34 g/dl (33.0-37.0); PLATELET COUNT 374 K/mm3 (130-400); RED BLOOD COUNT 3.74 M/mm3 (4.10-5.30); REDCELL DISTRIBUTION WIDTH-CV 14.1 % (11.5-14.5)
[2024-01-15 11:59] LABS: HEMATOCRIT 33.7 % (37.0-47.0)
[2024-01-15 12:23] LABS: ALBUMIN 2.3 g/dL (3.4-4.8); CALCIUM 9.2 mg/dL (8.4-10.2); CREATININE, serum 0.89 mg/dL (0.57-1.11); PHOSPHOROUS 2.5 mg/dL (2.3-4.7); POTASSIUM 4.4 mEq/L (3.5-4.5)
[2024-01-15 12:38] LABS: BAND 3 % (0-10); LYMPHOCYTE 13 % (20.0-51.0); NEUTROPHILS 80 % (42.0-75.2); PLATELET ESTIMATE NORMAL (NORMAL)
--- NOTE | 2024-01-15 16:00 | NUR ---
PATIENT VOIDED 400CC. PATIENTS PVR GREATER THAN 500CC. MD NOTIFIED AND ORDERED X1 STRAIGHT CATH.
--- NOTE | 2024-01-15 16:30 | NUR ---
SUCCESSFUL STRAIGHT CATH, PATIENT TOLERATED WELL. 630CC OF YELLOW URINE DRAINED. PATIENT DENIES ANY NEEDS OR CMOPALINTS.
[2024-01-15 17:00] LABS: PH 5.5 (5.0-8.5); URINE APPEARANCE CLEAR (CLEAR/HAZY); URINE BLOOD NEGATIVE (NEGATIVE); URINE COLOR YELLOW (YELLOW); URINE GLUCOSE 2+ (NEGATIVE); URINE KETONE TRACE (NEGATIVE); URINE NITRATE NEGATIVE (NEGATIVE); URINE PROTEIN(semi-quant) TRACE (NEGATIVE); URINE UROBILINOGEN 0.2 E.U/dL (0.2-1.0)
[2024-01-15 17:17] LABS: COLLECTION METHOD CLEAN CATCH
--- NOTE | 2024-01-15 17:30 | NUR ---
NIMANET AWAKE AND ALERT, SITTING UP IN BED. FALL PREACUATIONS IN PLACE. PATIENTS AT BEDSIDE. CALL LIGHT WITHIN REACH. PATIENT AWARE IF SHE IS UNABLE TO VOID STAFF APRIL BLADDER SCAN HER AGAIN AT 2230. PATIENT VERBALIZES UNDERSTANDING.
[2024-01-16] VITALS (12 sets, daily range): BP systolic 113–137; BP diastolic 57–71; PULSE 78–92; TEMP 97.4–98.5
--- NOTE | 2024-01-16 04:51 | NUR ---
Pt alert and oreinted. was here visiting at the start of the shift. 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 Per report on day shift yesterday she had some urinary retention. We are implementing PVR to monitor urinary output. No c/o pain, buring or discomfort with urination, says she has never had retention problems before this hospital stay. Does have visible rectal prolapse.Previous IV site infiltrated, new IV start to Left Wrist. Pt continued to have 400/500ml urine residual post void. Wills catheter placed and immediately 600ml of clear urine emptied and recorded. Pt denies pain at this time, no request further. Call light within reach, bed alarm engaged.
[2024-01-16 06:42] LABS: HEMOGLOBIN 11.1 g/dl (12.5-16.0); MEAN CELL VOLUME 92 fl (80.0-100.0); MEAN CORPUSCULAR HEMOGLOBIN 31 pg (27-31); MEAN CORPUSCULAR HGB CONC 33 g/dl (33.0-37.0); MEAN PLATELET VOLUME 9.9 fl (7.4-10.4); PLATELET COUNT 335 K/mm3 (130-400); RED BLOOD COUNT 3.62 M/mm3 (4.10-5.30); REDCELL DISTRIBUTION WIDTH-CV 14.1 % (11.5-14.5)
[2024-01-16 06:45] LABS: HEMATOCRIT 33.3 % (37.0-47.0)
[2024-01-16 06:48] LABS: ALBUMIN 2.2 g/dL (3.4-4.8); CALCIUM 8.8 mg/dL (8.4-10.2); CREATININE, serum 0.78 mg/dL (0.57-1.11); MAGNESIUM 2.1 mg/dL (1.6-2.6); PHOSPHOROUS 2.2 mg/dL (2.3-4.7); POTASSIUM 4.1 mEq/L (3.5-4.5)
--- NOTE | 2024-01-16 07:15 | NUR ---
PATEINT ASLEEP, RESTING IN BED. FALL PRECAUTIONS IN PLACE. PATIENTS RESPIRATIONS WNL, IVERSON PATENT AND DRAINING TO GRAVITY ON LOWER BED HOOK. PATIENTS O2 AT 0.5LNC. CALL LIGHT WITHIN REACH, BED ALARM ON.
[2024-01-16 07:54] LABS: BAND 5 % (0-10); HYPOCHROMIA 1+; LYMPHOCYTE 28 % (20.0-51.0); NEUTROPHILS 61 % (42.0-75.2); PLATELET ESTIMATE NORMAL (NORMAL)
--- NOTE | 2024-01-16 09:30 | NUR ---
PATIENT AWAKE AND ALERT, SITITNG UP IN RECLINER. PATINET DENIES ANY NEEDS AT THIS TIME. PATIENT STATES SHE DOESNT FELL WELL. PHYSICIAL ASSESS SIMILAR TO YESTERDAY.MD NOTIFIED. FALL PRECAUTIONS IN PLACE, INCLDUING CHAIR ARLARM ON. CALL LIGHT WITHIN REACH.
--- NOTE | 2024-01-16 11:10 | NUR ---
PATIENT GIVEN DISCHARGE INSTRCTIONS [facility]. PER PATIENTS DR CHANDRA ON TELEHEALTH STATED HE DOES NOT NEED TO SEE PATIENT UNLESS HE BECOMES HYPONATREMIC . PATIENT GIVEN SCRIPT FOR BLOOD WORK, TO BE DRAWN THURSDAY. PATIENT ALREADY HAS PCP FOLLOWUP APT. IV AND TELE REMOVED.PATIENT TAKEN TO ER ENTRANCE WHERE HE LEFT IN STABLE CONDITION WITH HIS .
--- NOTE | 2024-01-16 11:31 | NUR ---
breakdown worker was notified patient will discharge home with home health services tomorrow. Discharge plan: Home with [facility]
[2024-01-16] MEDS ORDERED: guaiFENesin ER 600 MG **** subs to guaiFENesin 200 MG PO SCH (11:55)
[2024-01-16] MEDS ORDERED: predniSONE 20 MG TAB PO SCH (11:58)
--- NOTE | 2024-01-16 13:30 | NUR ---
PATIENT AWAKE AND ALERT, SITTING UP IN BED. PATIENT DENIES ANY NEEDS OR COMPLAINTS AT THIS TIME. FALL PRECAUTIONS IN PLACE. CALL LIGHT WITHIN REACH. PATIENTS AT BEDSIDE.
[2024-01-16] MEDS ORDERED: guaiFENesin 200 MG TAB PO SCH (14:00)
--- NOTE | 2024-01-16 18:30 | NUR ---
Bedside report received from HONG Brice. Pt is awake in bed watching tv with no complaints. INT to Lt wrist patent with no swelling redness or drainage. Pt has no request at this time. Call light within reach and fall precautions in place.
--- NOTE | 2024-01-16 22:24 | NUR ---
Shift assessment completed. VSS. INT to Lt wrist patent with no swelling, redness, or drainage. Wills catheter in place with clear yellow urine draining into catheter bag. Pt reports no pain at this time. O2 via NC in place at 0.5L with no irritation to bilateral nares. Pt has no request at this time. Call light within reach and fall precautions in place.
[2024-01-17 01:18] VITALS: BP_SYST 113
[2024-01-17 03:43] VITALS: BP 112/66; PULSE 88; TEMP 97.7
[2024-01-17 05:02] VITALS: BP_SYST 112
[2024-01-17 06:26] LABS: HEMOGLOBIN 10.9 g/dl (12.5-16.0); MEAN CELL VOLUME 89 fl (80.0-100.0); MEAN CORPUSCULAR HEMOGLOBIN 30 pg (27-31); MEAN CORPUSCULAR HGB CONC 34 g/dl (33.0-37.0); MEAN PLATELET VOLUME 9.7 fl (7.4-10.4); PLATELET COUNT 338 K/mm3 (130-400); RED BLOOD COUNT 3.58 M/mm3 (4.10-5.30)
[2024-01-17 06:31] LABS: HEMATOCRIT 31.9 % (37.0-47.0)
--- NOTE | 2024-01-17 06:45 | NUR ---
PATIENT AWAKE AND ALERT, SITTING UP IN BED. FALL PRECAUTIONS IN PLACE. IVERSON CATHETER REMOVED PER UROLOGIST ORDERES. PATIETN TOLERATED WELL. CALL LIIGHT WITHIN REACH.
[2024-01-17 06:51] LABS: ALBUMIN 2.2 g/dL (3.4-4.8); CALCIUM 8.7 mg/dL (8.4-10.2); CREATININE, serum 0.79 mg/dL (0.57-1.11); PHOSPHOROUS 2.9 mg/dL (2.3-4.7); POTASSIUM 4.5 mEq/L (3.5-4.5)
[2024-01-17 07:11] LABS: BAND 4 % (0-10); HYPOCHROMIA 1+; LYMPHOCYTE 16 % (20.0-51.0); NEUTROPHILS 68 % (42.0-75.2); PLATELET ESTIMATE NORMAL (NORMAL)
[2024-01-17 07:27] VITALS: BP 147/66; PULSE 77
[2024-01-17 09:00] VITALS: BP_SYST 147
[2024-01-17 11:21] VITALS: BP 164/67; PULSE 83; TEMP 98.4
--- NOTE | 2024-01-17 12:54 | NUR ---
PATIENT ABLE TO VOID 400CC OF YELLOW URINE. PVR WAS >300. PER UROLOGIST YESTERDAY, PATIENT OK TO DC AND FOLLOW UP IN CLINIC IF VOIDING (EVEN IF RESIDUAL IS HIGH.) PER RT EX OX COMPLETE, PATIENT REQUIRES NO O2 WITH AMBULATION OR AT REST. PER DR QUEVEDO, PATIENT TO CALL PULM OFFICE FOR Thursday. CONTACT INFO FOR PULM AND UROLOGY OFFICE TO BE PLACED ON DISCHARGE PAPER WORK. HOSPITALIST NOTIFIED OF THE ABOVE.
[2024-01-17] MEDS ORDERED: FLOMAX 0.40.4 MG/CAP PO (13:11)
[2024-01-17] MEDS ORDERED: MUCUS RELIEF200 MG PO (13:12)
[2024-01-17] MEDS ORDERED: PREDNISONE20 MG PO (13:12)
[2024-01-17] MEDS ORDERED: TESSALON P100 MG/CAP PO (13:12)
[2024-01-17] MEDS ORDERED: CEFTIN500 MG PO (13:15)
[2024-01-17] MEDS ORDERED: DOXYCYCLINE 10100 MG PO (13:15)
--- NOTE | 2024-01-17 13:44 | NUR ---
MICHELLE faxed updated clinicals and discharge orders to [facility] for patient to discharge to home today.
--- NOTE | 2024-01-17 13:49 | NUR ---
PATIENT PHARMACY CLOSED. PER PHARAMCY WE ARE UNABLE TO GIVE PATIENT A HOME DOSE OF ANTIBIOTICS AT HOME. THIS RN CALLED [facility] (PATIETNS CHOICE OF PHARM) AND PLACED ORDER FOR PATIENTS NEW ANTIBIOTICS. PATIENT UPDATED.
--- NOTE | 2024-01-17 14:15 | NUR ---
PATIENT AWAKE AND ALERT, SITTING UP IN RECLINER. PATIENTS AT BEDSIDE. PATIENT GIVEN DISCHARGE INSTRUCTIONS AND EDUCAITON GIVEN. IV AND TELE REMOVED. PATIENT AWARE TO MANAGER ADOBE ANTIBIOTICS AT [facility] AND REST OF PRESCRIBED MEDICAITONS AT [facility] TOMORROW. PATIEN TAKEN VIA WHEELCHAIR BY THIS RN TO ER ENTRANCE WHERE SHE WAS PICKED UP BY HER . PATIENT LEFT IN STABLE CONDITION.
[2024-01-19 13:12] LABS: BLASTOMYCES AB Negative (Negative)
== END 2024-01-17 14:15 | disposition home or self-care (01) | DRG 871 ==
LOC: COL.ER 16:09 → MEDICAL 16:29 → EDBEDREQ 20:14 → MEDICAL 20:15
PROVIDERS: Emergency Medicine; ADMIT Internal Medicine
DX: A41.9 Sepsis, unspecified organism (principal); J18.1 Lobar pneumonia, unspecified organism; J96.01 Acute respiratory failure with hypoxia; N17.9 Acute kidney failure, unspecified; J90 Pleural effusion, not elsewhere classified; J67.9 Hypersensitivity pneumonitis due to unspecified organic dust; R04.89 Hemorrhage from other sites in respiratory passages; Z66 Do not resuscitate; E11.9 Type 2 diabetes mellitus without complications; R33.9 Retention of urine, unspecified; I10 Essential (primary) hypertension; K62.3 Rectal prolapse; Z20.822 Contact with and (suspected) exposure to COVID-19; Z96.611 Presence of right artificial shoulder joint; K21.9 Gastro-esophageal reflux disease without esophagitis; Z90.89 Acquired absence of other organs; Z90.710 Acquired absence of both cervix and uterus; Z90.49 Acquired absence of other specified parts of digestive tract; Z88.8 Allergy status to other drugs, medicaments and biological substances; Z79.899 Other long term (current) drug therapy; Z79.4 Long term (current) use of insulin; Z91.048 Other nonmedicinal substance allergy status; Z23 Encounter for immunization
CPT/HCPCS: J0456; J0692; J0696; J1100; J1650; J1815; J7030; J7050; J7512; Q9967